=== PATIENT | female | born 1995 | race Caucasian/White ===

== ENCOUNTER → 2022-10-30 | Outpatient (REF) | payer OTHER | LOC: M LAB REF 21:46 | PROVIDERS: ATTEND Physician Assistant | DX: B34.9 Viral infection, unspecified (principal) ==

== ENCOUNTER → 2023-05-12 | Outpatient (REF) | payer OTHER | LOC: M LAB REF 12:10 | PROVIDERS: ATTEND Nurse Practitioner Adult Health | DX: E11.9 Type 2 diabetes mellitus without complications (principal) ==

== ENCOUNTER → 2023-06-16 | Outpatient (REF) | payer OTHER ==
[2023-06-16 17:56] LABS: FREE T3 3.5 PG/ML (2.3-4.2)
== END ==
LOC: M LAB REF 13:13
PROVIDERS: ATTEND Nurse Practitioner Adult Health
DX: R00.2 Palpitations (principal); R07.9 Chest pain, unspecified

== ENCOUNTER → 2024-05-05 | Outpatient (CLI) | payer BC, OTHER ==
[2024-05-05 16:53] LABS: CREATININE, URINE 195.2 MG/DL
[2024-05-05 16:53] LABS: BLOOD UREA NITROGEN 16 MG/DL (9-23); CALCIUM LEVEL 8.9 MG/DL (8.5-10.1); CARBON DIOXIDE LEVEL 29 MMOL/L (20-31); CHLORIDE LEVEL 102 MMOL/L (98-107); CREATININE FOR GFR 0.87 MG/DL (0.55-1.30); GLOMERULAR FILTRATION RATE > 60.0 (>60); GLUCOSE, FASTING 134 MG/DL (60-100); POTASSIUM SERUM 4.2 MMOL/L (3.5-5.1); SODIUM LEVEL 140 MMOL/L (136-145)
[2024-05-05 16:57] LABS: THYROGLOBULIN ANTIBODY < 15.0 U/ML (<60.0); THYROID STIMULATING HORMONE 1.879 uIU/ML (0.55-4.78)
== END ==
LOC: M LAB 15:27
PROVIDERS: ATTEND Nurse Practitioner Family
DX: E04.9 Nontoxic goiter, unspecified (principal); E11.9 Type 2 diabetes mellitus without complications

== ENCOUNTER → 2024-06-20 | Outpatient (REF) | payer OTHER ==
[2024-06-20 18:18] LABS: MONO REFLEX EBV COMP NEGATIVE (NEGATIVE)
== END ==
LOC: M LAB REF 17:16
PROVIDERS: ATTEND Nurse Practitioner Adult Health
DX: R53.83 Other fatigue (principal)

== ENCOUNTER → 2025-02-17 | Outpatient (REF) | payer OTHER ==
[~2025-02-17] MED LIST: LEXA1TAB2; TRUL10IN
== END ==
LOC: M LAB REF 18:20
PROVIDERS: ATTEND Student in an Organized Health Care Education/Training Program
DX: R30.0 Dysuria (principal)